=== PATIENT | male | born 1975 | race Caucasian/White ===

== ENCOUNTER 2017-01-16 16:21 | Observation (INO) ==
[2017-01-16] MEDS ORDERED: Piperacillin/Tazobactam 4.5 GM in D5% in Water (Mini-Bag+) 100 ML IVPB ONE (17:11)
[2017-01-16] MEDS ORDERED: Ringers Solution, Lactated 1,000 ML IVC SCH (17:15)
[2017-01-16] MEDS ORDERED: *HR* Morphine 2 MG/ML SYRINGE IVP PRN ×2 (17:18→18:23)
[2017-01-16] MEDS ORDERED: *HR* OxyCODONE/APAP 5/325 TABLET PO PRN ×3 (17:18→20:52)
--- NOTE | 2017-01-16 17:33 | Anesthesia Evaluation PreOp ---
Date of Encounter: 01/16/17 Time of Encounter: 18:11 - Past History Planned Operation: Lap Appy Cardiac History: HTN (maintained on Cozaar), Hyperlipidemia (maintained on Fenofibrate, Zetia) Pulmonary History: Denies Any Significant HX ANALY[employer] History: Denies Any Significant HX Other Medical History: Diabetes Type II (maintained on Metformin, Glipizide, Tradjenta) Anesthesia History: No Prior Anesthetic Complications, Past Anesthesia (R-index finger "surgery for smashed finger"), MH (NO FamHx of ) Alcohol Use: none Drug use: none Medications and Allergies Ezetimibe [Zetia] 10 mg PO DAILY 01/16/17 [History] Fenofibrate Nanocrystallized [Triglide] 160 mg PO DAILY 01/16/17 [History] GlipiZIDE [Glipizide ER] 10 mg PO DAILY 01/16/17 [History] Linagliptin [Tradjenta] 5 mg PO DAILY 01/16/17 [History] Losartan [Cozaar] 25 mg PO DAILY 01/16/17 [History] Thyroid,Pork [[place] Thyroid] 120 mg PO DAILY 01/16/17 [History] metFORMIN [Glucophage] 1,000 mg PO BIDWM 01/16/17 [History] 3 Allergy/AdvReac Type Severity Reaction Status Date / Time No Known Allergies Allergy Verified 01/16/17 11:16 - Meds/Allergy Pre-op Review Medications Reviewed: Yes Allergies Reviewed: Yes Beta Blockers on Current Med List: No Anesthesia Results - Labs Laboratory Tests 01/16/17 01/16/17 11:35 11:35 WBC 14.3 H Hgb 15.0 Hct 42.5 Plt Count 277 Sodium 140 Potassium 4.2 Chloride 105 Carbon Dioxide 24 BUN 14 Est GFR (Non-Af Amer) > 60 Laboratory Tests 08/26/16 08/26/16 01/16/17 07:29 07:29 11:35 Glucose 88 Est Mean Plasma Glucose 157 Hemoglobin A1c 7.1 H Cholesterol 205 H LDL Cholesterol, Calc 139 H Lipase 115 H Anesthesia Exam Vital Signs Temp Pulse Resp BP Pulse Ox 01/16/17 16:26 98.0 F 76 18 118/72 98 Intake and Output 01/16/17 01/16/17 01/16/17 07:59 15:59 23:59 Other: Stool Characteristics Normal for Patient Weight 95.254 kg Patient Weight 01/16/17 23:59 Weight 95.254 kg Height: 5'4" Weight: 210# BMI = 36 NPO (# of Hours): MNoc - HEENT Pupil (Motor): Pupils equal, EOMI Mallampati: I Teeth: Normal Oral Opening: Greater than 3 - ANALY[employer] LOC: Oriented ANA[employer] Motor: Normal RUE, Normal LUE, Normal RLE, Normal LLE, Normal Face [employer] Sensory: Normal: RUE, LUE, RLE, LLE, Face - Cardiac Rhythm: Regular Murmur: None - Pulmonary Breath Sounds: bilateral Clear Respiratory Effort: Symmetrical Anesthesia Assess/Plan ASA Score: 3 (Obesity, Chol, DM, Hypothyroidism), E Modified [place] Scale for Level of Consciousness: Cooperative, oriented, and tranquil Anesthetic Plan: General Monitoring Plan: Standard Monitors Recovery Plan: PACU Anes Supervising Prov Stmt: Pt see,/evaluated, R&B Discussed, questions answered and consent obtained. Gisell Lerma MD
--- NOTE | 2017-01-16 18:08 | General Surg History&Physical ---
Date of Encounter: 01/16/17 Time of Encounter: 16:15 Assessment and Plan (1) Acute appendicitis Current Visit: Yes Status: Acute IV antibitocis (zosyn) IV fluid: LR @ 125 consent for lap appy to OR admit to inpatient after procedure - percocet, morphine - cont abx until AM - diet after procedure: CLD then ADAT to reg diet - activity as tolerated -DVT prophylaxis: lovenox The assessment and plan as outlined above was discussed with the patient and/or family members who expressed understanding and agreement. All questions were answered. Qualifiers: Acute appendicitis type: with localized peritonitis Qualified Code(s): K35.3 - Acute appendicitis with localized peritonitis (2) Hyperlipidemia associated with type 2 diabetes mellitus Current Visit: Yes Status: Chronic - resume home meds in the AM The assessment and plan as outlined above was discussed with the patient and/or family members who expressed understanding and agreement. All questions were answered. (3) Hypertension Current Visit: Yes Status: Chronic vitals q4hrs; resume home medications The assessment and plan as outlined above was discussed with the patient and/or family members who expressed understanding and agreement. All questions were answered. Qualifiers: Hypertension type: unspecified Qualified Code(s): I10 - Essential (primary ) hypertension History of Present Illness Chief complaint: abdominal pain HPI: Mr. Vidales is a 41 year old male with a PMH significant for hypertriglyceridemia , hyperlipidemia, DM, HTN, obesity (BMI 36), hypothyroidism, who presents with a 10 hour history of sharp abdominal pain. It began in the epigastric region and has since migrated to the RLQ. Non migrating without any identifiable alleviating or exacerbating factors. The patient does not report any associated nausea, vomiting, fevers, chills. He was able to tolerate his breakfast this morning. He has never experienced pain like this before. Due to the fact that his symptoms did get worse, he went to an outside hospital for evaluation. CT scan was obtained and confirmed acute appendicitis. He was subsequently transferred to [facility] for surgical evaluation and managment. Past Med Surg Social Fam HX - Past Medical History Medical history: diabetes, hyperlipidemia, hypertension, thyroid disease, other (hypertriglyceridemia) Psychiatric history: no psych history - Past Surgical History Surgical History: other (incision along Index finger on Right hand) - Social History Smoking Status: Never smoker Smokeless Tobacco Status: No Alcohol use: none Drug use: none - Additional Family History Additional family history: non contributory Medications and Allergies Ezetimibe [Zetia] 10 mg PO DAILY 01/16/17 [History] Fenofibrate Nanocrystallized [Triglide] 160 mg PO DAILY 01/16/17 [History] GlipiZIDE [Glipizide ER] 10 mg PO DAILY 01/16/17 [History] Linagliptin [Tradjenta] 5 mg PO DAILY 01/16/17 [History] Losartan [Cozaar] 25 mg PO DAILY 01/16/17 [History] Thyroid,Pork [[place] Thyroid] 120 mg PO DAILY 01/16/17 [History] metFORMIN [Glucophage] 1,000 mg PO BIDWM 01/16/17 [History] 3 Allergy/AdvReac Type Severity Reaction Status Date / Time No Known Allergies Allergy Verified 01/16/17 11:16 Review of Systems All systems PM: A 10-system review of systems was performed and is negative for pertinent findings except as documented above in the HPI. General Surgery Exam Initial Vital Signs Temp Pulse Resp BP Pulse Ox 98.0 F 76 18 118/72 98 01/16/17 16:26 01/16/17 16:26 01/16/17 16:26 01/16/17 16:26 01/16/17 16:26 - General physical appearance well developed, well nourished - Eyes PERRL, normal ocular movement - ENT normocephalic - Respiratory normal expansion, normal respiratory effort, clear to auscultation - Abdomen Abdomen general surgery: Present: soft, tender Abdominal Tenderness: Present: epigastic, RLQ ((+) tenderness at McBurney's point; (-)Rosving sign) Hernia: Present: none - Psychiatric Psychiatric general surgery: Present: A&Ox3, speech is normal Results - Labs All other labs normal. wbc: 14.3; h/h:15.3/42.5; plt:277 Na: 140; K+:4.2; Cl: 105; HCO3: 24; BUN/Cr: 14/0.8; glu: 88 - Imaging CT scan - abdomen: report reviewed, other (1.3cm dilated appendix; associated fat stranding)
[2017-01-16] MEDS ORDERED: *HR* FentaNYL (PF) 100 MCG/2 ML VIAL ONE (18:20)
[2017-01-16] MEDS ORDERED: Dexamethasone 4 MG/ML VIAL ONE (18:20)
[2017-01-16] MEDS ORDERED: Ketorolac 30 MG/ML VIAL ONE (18:20)
[2017-01-16] MEDS ORDERED: *HR* Propofol 200 MG/20 ML VIAL IVP ONE (18:20)
[2017-01-16] MEDS ORDERED: *HR* Rocuronium Bromide 50 MG/5 ML VIAL ONE (18:20)
[2017-01-16] MEDS ORDERED: *HR* Midazolam HCl 2 MG/2 ML VIAL ONE (18:20)
[2017-01-16] MEDS ORDERED: Ondansetron 4 MG/2 ML VIAL ONE (18:20)
[2017-01-16] MEDS ORDERED: Lidocaine -MPF 2% 2 ML VIAL ONE (18:20)
[2017-01-16] MEDS ORDERED: Neostigmine Methylsulfate 3 MG/3 ML SYRINGE ONE (18:56)
[2017-01-16] MEDS ORDERED: *HR* HYDROmorphone 2 MG/ML SYRINGE ONE (18:58)
[2017-01-16] MEDS ORDERED: *HR* Meperidine 25 MG/ML SYRINGE ONE (19:54)
--- NOTE | 2017-01-16 20:04 | Operative Note ---
Date of procedure: 01/16/17 Pre-op diagnosis: acute appendicitis Post-op diagnosis: same Procedure: Laparoscopic Appendectomy Implants: none Complications: none Anesthesia: GETA Local Anesthetics: 0.5% Sensorcaine HCL SubQ (cc) Surgeon: Rashawn Real (First appy in the books! yay! Went well, no identifiable issues) Litigation Attorney Associate: Meli Prater (she was great) Estimated blood loss (cc): 20 Specimen: appendix Condition: stable Disposition: PACU Procedure in Detail: Indications: This is a 41-year-old gentleman with a 12 hour history of abdominal pain localized epigastrium with migration to the right lower quadrant. The patient was evaluated at an outside facility where a CT scan confirmed acute appendicitis. Patient also had a leukocytosis of 14.3. The patient was then brought to [facility] for surgical evaluation and management. The patient was consented and the risks and benefits of an appendectomy were explained to the patient. Risks including injury to other structures including bladder and bowel, bleeding, worsening infections including abscesses and wound infections. The patient understood the risks and benefits and elected to proceed with surgery. Procedure: The patient was brought into the operating room suite. Underwent smooth induction of anesthesia. Was prepped and draped in the usual fashion in supine position. Preoperative DVT prophylaxis was initiated. Preoperative antibiotics of Zosyn was given. A timeout was held identifying correct patient pathology and procedure. Everyone was in agreement and I began our procedure. I started by creating a supra umbilical incision approximately 12 mm and via open Alexis technique did enter into the abdomen. I then inserted the camera and began insufflation. I then made a 5 mm incision suprapubically and under direct visualization I placed a 5 mm trocar approximately 1 handbreadth below the umbilicus. And approximately 1 handbreadth lateral towards the left side I made another 5 mm incision and under direct under direct visualization placed another 5 mm trocar. The patient was then placed in Trendelenburg and tilted slightly right side up. Using nontraumatic graspers I was able to identify the base of the cecum by following the tinea coli and quickly identified the appendix. It should be stated that there was minimal inflammation. I was able to grasp the appendix and, using the [place] dissectors, was able to create a mesenteric window. I then switchea to the 5 mm camera so that I can insert the stapler into the 12 mm umbilical port. I then placed the base of the appendix between the teeth of the stapler. Prior to firing I did verify that I will was at the base of the appendix and ensured that there were no other structures within the teeth the stapler. I then fired the stapler thereby resecting the appendix from the cecum. I then used the vascular load stapler (45 load) to staple across the mesentery in a similar fashion. I then inserted the Endo Catch bag through the 12 mm port to retrieve the specimen. The specimen was intact we then switched back to the 10 mm camera to obtain good visualization of the staple lines. I was able to visualize the staple line of the mesoappendix as well as the base of the cecum there was no obvious bleeding or leaking. At this point we concluded our procedure and discontinued the insufflation and removed the trochars. Using a Vicryl suture on a UR 6 needle we then closed the umbilical fascia in a [id number] fashion. And then closed all skin incisions with interrupted Monocryl and sealed with Dermabond We also used roughly 30 mL 0.5% Marcaine for local anesthetic. The patient tolerated the procedure well and went to the PACU in stable condition. I, Dr. Real, was present during the entire case
--- NOTE | 2017-01-16 20:12 | Operative Note ---
Date of procedure: 01/16/17 Pre-op diagnosis: acute appendcitis Post-op diagnosis: same Procedure: Laparoscopic appendectomy Implants: None Complications: None Anesthesia: GETA Local Anesthetics: 0.5% Sensorcaine HCL SubQ (cc)
--- NOTE | 2017-01-16 20:14 | Procedure Note ---
Date of procedure: 01/16/17 Pre-op diagnosis: acute appendicitis Post-op diagnosis: same Procedure: Laparoscopic appendectomy Anesthesia: CARROLL Surgeon: Rashawn Real Swimmer: Meli Prater Estimated blood loss (cc): 20 Pathology: other (appendix, inflammed; sent) Condition: stable Disposition: PACU
--- NOTE | 2017-01-16 20:48 | Anesthesia Evaluation Post Op ---
Date of Encounter: 01/16/17 Time of Encounter: 20:47 - Vital Signs Vital Signs: Last Vital Signs Temp 98.3 F 01/16/17 20:27 Pulse 69 01/16/17 20:27 Resp 15 01/16/17 20:27 BP 119/79 01/16/17 20:27 Pulse Ox 94 01/16/17 20:27 - Lungs Lungs: Clear Ascult./Percussion - Airway Airway: Non-obstructed - Cardiovascular Regular Rate - Mental Status Mental Status: Alert & Oriented, Answers Appropriately - Pain Pain Scale: 3 - Nausea Vomiting Nausea Vomiting: Not Present - Hydration Hydration: NPO - Discharge PostOp Status: Transfer Patient to floor
[2017-01-16] MEDS: D5% in 0.45% NACL w KCl 20 MEQ/1,000 ML MLS IVC SCH (22:05)
[2017-01-17] MEDS ORDERED: *HR* Enoxaparin 40 MG/0.4 ML SYRINGE SQ SCH ×3 (06:00)
[2017-01-17] MEDS: *HR* Morphine 2 MG/ML SYRINGE IVP PRN ×2 (07:06→11:13)
[2017-01-17] MEDS ORDERED: *HR* Metformin 500 MG TABLET PO SCH ×2 (08:00)
[2017-01-17] MEDS: D5% in 0.45% NACL w KCl 20 MEQ/1,000 ML MLS IVC SCH (08:11)
[2017-01-17] MEDS ORDERED: (Linagliptin [Tradjenta] 5 MG) PO SCH (09:00)
[2017-01-17] MEDS ORDERED: THYROID PORK 120 MG PO SCH ×3 (09:00)
[2017-01-17] MEDS ORDERED: FENOFIBRATE NANOCRYSTALLIZED 160 MG PO SCH (09:00)
[2017-01-17] MEDS ORDERED: Fenofibrate 54 MG TABLET PO SCH ×2 (09:00)
[2017-01-17] MEDS ORDERED: NON-FORMULARY MEDICATION 1 EACH EACH (Linagliptin [Tradjenta] 5 MG) PO SCH (09:00)
[2017-01-17] MEDS ORDERED: (Ezetimibe [Zetia] 10 MG) PO SCH (09:00)
[2017-01-17] MEDS ORDERED: ZETIA 10MG PO SCH (09:00)
[2017-01-17] MEDS ORDERED: *HR* GlipiZIDE XL (24 HR) 10 MG TABLET PO SCH ×3 (09:00)
--- NOTE | 2017-01-17 09:31 | General Surgery Progress Note ---
Date of Encounter: 01/17/17 Time of Encounter: 09:29 - Assessment and Plan (1) Acute appendicitis Current Visit: Yes Status: Acute s/p lap appy; pain improved diet as tolerated PO pain meds ambulate plan for d/c today Qualifiers: Acute appendicitis type: with localized peritonitis Qualified Code(s): K35.3 - Acute appendicitis with localized peritonitis (2) Hyperlipidemia associated with type 2 diabetes mellitus Current Visit: Yes Status: Chronic cont home meds; f/u with PCP (3) Hypertension Current Visit: Yes Status: Chronic cont home meds; f/u with PCP Qualifiers: Hypertension type: unspecified Qualified Code(s): I10 - Essential (primary ) hypertension Subjective Patient reports: no new complaints, feels better, pain is less, tolerating liquids well, voiding w/o difficulty Objective Vital Signs - Last 8 Hours Temp Pulse Resp BP Pulse Ox 01/17/17 06:50 98.7 F 89 14 105/68 98 01/17/17 03:30 98.1 F 82 14 99/63 100 Intake and Output 01/16/17 01/17/17 01/17/17 23:59 07:59 15:59 Intake Total 240 / 240 1360 / 1360 Output Total 370 / 370 1275 / 1275 Balance -130 / -130 85 / 85 Intake: IV Fluids 1000 / 1000 KCl 20mEq IN D5%-0.45 1000 / 1000 NACL 20 meq In 1,000 ml @ 125 mls/hr IVC .Q8H JEANMARIE Rx#:[id number] Oral 240 / 240 360 / 360 Output: Urine 350 / 350 1275 / 1275 Estimated Blood Loss 20 / 20 Other: Weight 95.209 kg Blood Glucose* 117 Patient Weight 01/17/17 23:59 Weight 95.209 kg - General physical appearance well developed, well nourished, no distress - Respiratory normal expansion, normal respiratory effort, clear to auscultation - Cardiovascular Cardiovascular exam: Present: RRR - Abdomen Abdomen: Present: soft, tender (appropriately tender post op), surgical scars ( clean, dry, intact) Hernia: umbilical (reducible; supraumbilical) - Incision Incision: Present: clean and dry, intact - Neurologic CN 2-12 grossly intact - Psychiatric oriented to time, oriented to person, oriented to place - VTE Documentation of Mechanical Device: Intermittent pneumatic compression device Consult Discharge Plan - Plan Referrals: Wilma Martino, JOSEFINA [Primary Care Provider] -
--- NOTE | 2017-01-17 10:31 | Discharge Summary ---
Date of Encounter: 01/17/17 Time of Encounter: 10:20 - Discharge Diagnosis (1) Acute appendicitis Priority: Primary Status: Resolved Qualifiers: Acute appendicitis type: with localized peritonitis Qualified Code(s): K35.3 - Acute appendicitis with localized peritonitis (2) Hyperlipidemia associated with type 2 diabetes mellitus Priority: Secondary Status: Chronic (3) Hypertension Priority: Secondary Status: Chronic Qualifiers: Hypertension type: unspecified Qualified Code(s): I10 - Essential (primary ) hypertension - Discharge Medications Prescriptions: Ibuprofen [Motrin] 600 mg PO Q8HR #50 tab Docusate [Colace] 100 mg PO BID #30 capsule OxyCODONE/APAP 5/325 [Percocet 5/325 MG] 1 each PO Q4H PRN #30 tab PRN Reason: Pain Home Medications: Ezetimibe [Zetia] 10 mg PO DAILY 01/16/17 [History] Fenofibrate Nanocrystallized [Triglide] 160 mg PO DAILY 01/16/17 [History] GlipiZIDE [Glipizide ER] 10 mg PO DAILY 01/16/17 [History] Hydrocortisone 1% CREAM [Cortaid] 1 appl TP TID PRN 01/16/17 [History] Linagliptin [Tradjenta] 5 mg PO DAILY 01/16/17 [History] Losartan [Cozaar] 25 mg PO DAILY 01/16/17 [History] Thyroid,Pork [[place] Thyroid] 120 mg PO DAILY 01/16/17 [History] metFORMIN [Glucophage] 1,000 mg PO BIDWM 01/16/17 [History] Docusate [Colace] 100 mg PO BID #30 capsule 01/17/17 [Rx] Ibuprofen [Motrin] 600 mg PO Q8HR #50 tab 01/17/17 [Rx] OxyCODONE/APAP 5/325 [Percocet 5/325 MG] 1 each PO Q4H PRN #30 tab 01/17/17 [Rx] Allergies/Adverse Reactions: 3 Allergy/AdvReac Type Severity Reaction Status Date / Time No Known Allergies Allergy Verified 01/16/17 11:16 General Surgery Exam Initial Vital Signs Temp Pulse Resp BP Pulse Ox 98.0 F 76 18 118/72 98 01/16/17 16:26 01/16/17 16:26 01/16/17 16:26 01/16/17 16:26 01/16/17 16:26 - General physical appearance well developed, well nourished, no distress - Eyes normal ocular movement - ENT normal mucosa, atraumatic, normocephalic - Neck trachea midline - Respiratory normal respiratory effort, clear to auscultation - Cardiovascular Cardiovascular exam: Present: RRR - Abdomen Abdomen general surgery: Present: bowel sounds present, soft, tender (Expected postoperative tenderness) - Incision Incision: Present: clean and dry, intact - Integumentary Integumentary general surgery: Present: warm and dry - Neurologic Present: CN 2-12 grossly intact - Musculoskeletal Present: normal gait, normal posture - Psychiatric Psychiatric general surgery: Present: appropriate, oriented to person, oriented to place, oriented to time, speech is normal, memory intact Date of admission: 01/16/17 18:23 Primary care physician: Wilma Martino CNP Discharging clinician: Rashawn Real (Ayo Art) Anticipated date of discharge: 01/17/17 - Patient Status Disposition: Home, Self-Care Condition: Good Functional capacity at discharge: independent ambulation Overall status at discharge: patient is progressing back to baseline - Discharge Instructions Follow Up With: Joyce Art CNP [Advanced Practice Nurse] - 01/29/17 9:00 am (surgery follow-up) Wilma Martino CNP [Primary Care Provider] - (1-2 weeks hospital follow-up) Additional Instructions: #1 may shower, no tub bath for 2 weeks #2 wash incisions with soap and water and pat dry daily #3 no lifting, pushing, pulling more than 15 pounds for the next 2 weeks #4 no driving until off narcotics for 24 hours and able to safely react in the car #5 may climb stairs - Diet and Activity Activity: other (See additional instructions above) Diet: advance to your usual diet - Hospital Course Hospital course: Mr. Vidales is a 41 year old male who presented to the [facility] with abdominal pain. He was found to have acute appendicitis and was transferred to [facility] for further treatment. He was started on IV antibiotics. He was taken to the operating room with Dr. Real for a laparoscopic appendectomy. On postoperative day #1, he states that his preoperative pain has resolved. His vital signs are stable and he is afebrile. He is tolerating a diet without nausea or vomiting. His pain is well-controlled. He is voiding and ambulating without difficulty. We will begin discharge planning to home and plan for outpatient follow-up in the next 10-14 days. - Time Spent with Patient Total time spent providing and/or coordinating discharge services: Less than 30 minutes - Attending Attestation For this encounter, I have reviewed the TRANSFER STATION ATTENDANT or PA documentation, treatment plan, and medical decision making; and I have had face to face time with this patient.
[2017-01-17 11:25] VITALS: BP 115/77
== END 2017-01-17 13:08 | disposition home or self-care (01) ==
LOC: EMEROO 16:21 → 3ANU 17:45 → INTOOBSV 18:23 → 3ANU 18:23
PROVIDERS: ADMIT Surgery; ATTEND Surgery